=== PATIENT | female | born 2000 | race African-American/Black ===

== ENCOUNTER 2024-02-25 04:09 | Day surgery (SDC) | payer OTHER ==
[2024-01-02 17:52] VITALS: BMI 28.3
[2024-02-25] MEDS ORDERED: oxyCODONE HCL 5 MG TABLET PO PRN (08:09)
[2024-02-25] MEDS ORDERED: IBUPROFEN 400 MG TABLET (FP) PO PRN (08:09)
[2024-02-25] MEDS ORDERED: ACETAMINOPHEN 325 MG TABLET (FP) PO PRN (08:09)
[2024-02-25] MEDS ORDERED: MIDAZOLAM HCL 2 MG/2 ML SINGLE DOSE VIAL ONE (12:32)
[2024-02-25] MEDS ORDERED: ACETAMINOPHEN 1000 MG/100 ML BAG IVPB ONE (13:24)
[2024-02-25] MEDS ORDERED: ONDANSETRON 4 MG/2 ML VIAL IVPUSH PRN (13:24)
[2024-02-25] MEDS ORDERED: LACTATED RINGERS SOLUTION 1,000 ML IV SCH (13:30)
[2024-02-25 14:06] VITALS: RESP 20
[2024-02-25 16:54] VITALS: BP 122/74; PULSE 87; TEMP 98.6
== END 2024-02-25 16:58 | disposition home or self-care (01) ==
LOC: JASU-SURG 04:09
PROVIDERS: ATTEND Obstetrics & Gynecology
PROC: 0UB98ZZ Excision of Uterus, Via Natural or Artificial Opening Endoscopic (ICD-10-PCS; principal; 2024-02-25 12:15)
DX: D25.0 Submucous leiomyoma of uterus (principal); N85.6 Intrauterine synechiae
CPT/HCPCS: 88305-TC; 94760